=== PATIENT | male | born 2000 | race Caucasian/White ===

== ENCOUNTER 2019-07-26 02:02 | Emergency (ER) | payer OTHER, BC, SELFPAY ==
[2019-07-26 02:04] VITALS: BP 126/51; PULSE 80; RESP 19; TEMP 36.6; O2SAT 96; BMI 25.7
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
[2019-07-26 02:16] VITALS: BP 126/51; PULSE 85; RESP 19; O2SAT 96
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
[2019-07-26 03:12] VITALS: BP 117/45; PULSE 78; RESP 18; O2SAT 98
[2019-07-26 03:20] VITALS: RESP 18; O2SAT 98
[2019-07-26] MEDS: oxyCODONE-APAP 5-325 mg Tablet 2 TAB PO (03:20)
[2019-07-26 03:59] VITALS: BP 112/53; PULSE 68; RESP 17; O2SAT 98
== END 2019-07-26 04:00 | disposition home or self-care (01) ==
PROVIDERS: Emergency Provider Emergency Medicine; Family Provider Family Medicine; PCP Family Medicine
DX: S13.4XXA Sprain of ligaments of cervical spine, initial encounter (principal); S06.9X1A Unspecified intracranial injury with loss of consciousness of 30 minutes or less, initial encounter; F17.200 Nicotine dependence, unspecified, uncomplicated; V89.0XXA Person injured in unspecified motor-vehicle accident, nontraffic, initial encounter; Y92.410 Unspecified street and highway as the place of occurrence of the external cause
CPT/HCPCS: 70450; 70486; 72100; 72125; 99281; 99283